=== PATIENT | female | born 1975 | race Caucasian/White ===

== ENCOUNTER → 2020-11-14 | Day surgery (SDC) | payer BC ==
[~2020-11-14] MED LIST: CLONAZEPAM0.5 MG PO; FENTANYL CITRATE/PF 100MCG/2 ML INJ ONE; KETOROLAC TROME10 MG PO; LIDOCAINE HCL 2% LOCAL INJ 5 ML SDV VIAL INJ ONE; MIDAZOLAM HCL 2 MG/2 ML VIAL ONE; NEXIUM20 MG PO; POVIDONE IODINE 0.05% 0.05 % ML PO ONE; PROPOFOL IV EMULSION 10 MG/ML 20 ML VIAL ONE
[2020-11-14 08:00] VITALS: BP 102/63
== END | disposition home or self-care (01) ==
LOC: ENDO 05:38
PROVIDERS: ATTEND Surgery
DX: K21.9 Gastro-esophageal reflux disease without esophagitis (principal); K44.9 Diaphragmatic hernia without obstruction or gangrene; K31.7 Polyp of stomach and duodenum; K29.60 Other gastritis without bleeding; K31.9 Disease of stomach and duodenum, unspecified; R10.9 Unspecified abdominal pain; Z01.812 Encounter for preprocedural laboratory examination; Z20.822 Contact with and (suspected) exposure to COVID-19; E66.9 Obesity, unspecified; G25.81 Restless legs syndrome; Z79.899 Other long term (current) drug therapy; Z85.43 Personal history of malignant neoplasm of ovary; Z92.21 Personal history of antineoplastic chemotherapy; Z88.0 Allergy status to penicillin; Z87.891 Personal history of nicotine dependence; Z91.5 Personal history of self-harm; Z91.011 Allergy to milk products
CPT/HCPCS: 43239; 88305; 88312; J2001; J2704; U0002; J2250; J3010